=== PATIENT | male | born 1955 | race Caucasian/White ===

== ENCOUNTER → 2024-06-07 09:33 | Outpatient (REF) | payer MEDICARE, BC, SELFPAY ==
[2024-06-07 12:43] LABS: ALT (SGPT) 35 U/L (0-50); AST (SGOT) 36 U/L (17-59); Albumin 4.8 g/dl (3.5-5.0); Alkaline Phosphatase 57 U/L (38-126); Blood Urea Nitrogen 14 mg/dl (9-20); Calcium 9.2 mg/dl (8.4-10.2); Carbon Dioxide 22 mmol/L (22-30); Chloride 98 mmol/L (98-107); Glucose 89 mg/dl (70-99); HDL Cholesterol 86 mg/dl; LDL Cholesterol, Calculated 84 mg/dl; Potassium 4.6 mmol/L (3.5-5.1); Sodium 133 mmol/L (135-145); Total Bilirubin 0.7 mg/dl (0.2-1.3); Total Cholesterol 187 mg/dl (50-199); Total Protein 7.3 g/dl (6.3-8.2); Triglyceride 86 mg/dl (10-149); Very Low Density Lipoprotein 17 mg/dl (0-30); eGFR > 60.00
[2024-06-07 13:14] LABS: PSA, Total - Diagnostic < 0.06 ng/ml (0.0-4.0)
== END ==
LOC: HWLAB 09:33
PROVIDERS: ATTENDING PHYSICIAN Urology; FAMILY PHYSICIAN Family Medicine; REFERRING PHYSICIAN Physician Assistant Medical
DX: Z85.46 Personal history of malignant neoplasm of prostate (principal); E78.5 Hyperlipidemia, unspecified; I48.0 Paroxysmal atrial fibrillation
CPT/HCPCS: 36415; 80053; 80061; 84153; 84443

== ENCOUNTER → 2024-08-01 09:22 | Outpatient (REF) | payer MEDICARE, BC, SELFPAY ==
[2024-08-01 13:00] LABS: % Basophils 0.7 % (0-2); % Eosinophils 1.6 % (0-6); % Immature Granulocytes 0.6 % (0-0.5); % Monocytes 7.7 % (1.7-9.3); % Neutrophils 77.4 % (42.2-75.2); Absolute Basophils 0.1 10^3/uL (0-0.2); Absolute Eosinophils 0.1 10^3/uL (0-0.7); Absolute Immature Granulocytes 0.1 10^3/uL (0-0.05); Absolute Monocytes 0.7 10^3/uL (0.1-0.6); Absolute Neutrophils 6.6 10^3/uL (1.4-6.5); Hematocrit 39.9 % (39.0-52.0); Hemoglobin 13.5 g/dL (13.0-18.0); Mean Corp Hgb Conc. 33.8 g/dL (33.0-37.0); Mean Corpuscular Hgb 31.9 pg (27.0-31.0); Mean Corpuscular Volume 94.3 fL (80.0-94.0); Nucleated Red Blood Cells % 0 % (-); Platelet Count 242 10^3/uL (130-400); Red Blood Cell Count 4.23 10^6/uL (4.70-6.10); Red Cell Dist. Width 13.1 % (11.5-14.5); White Blood Cell Count 8.6 10^3/uL (4.8-10.8)
[2024-08-01 13:05] LABS: Blood Urea Nitrogen 16 mg/dl (9-20); Carbon Dioxide 23 mmol/L (22-30); Chloride 100 mmol/L (98-107); Glucose 87 mg/dl (70-99); Potassium 4.7 mmol/L (3.5-5.1); Sodium 133 mmol/L (135-145); eGFR > 60.00
== END ==
LOC: HWLAB 09:22
PROVIDERS: ATTENDING PHYSICIAN Orthopaedic Surgery; FAMILY PHYSICIAN Family Medicine
DX: Z01.818 Encounter for other preprocedural examination (principal)
CPT/HCPCS: 36415; 80048; 85025

== ENCOUNTER → 2024-08-02 09:09 | Outpatient (REF) | payer MEDICARE, BC, SELFPAY | LOC: HWCARD 09:09 | PROVIDERS: ATTENDING PHYSICIAN Orthopaedic Surgery; FAMILY PHYSICIAN Family Medicine | DX: Z01.818 Encounter for other preprocedural examination (principal) | CPT/HCPCS: 93005 ==

== ENCOUNTER 2024-09-03 06:24 | Day surgery (SDC) | payer MEDICARE, BC, SELFPAY ==
[2024-09-03] VITALS (8 sets, daily range): BP systolic 116–147; BP diastolic 80–93; BMI 28.8
[2024-09-03] MEDS: TYLENOL 1000 MG PO (09:24)
[2024-09-03] MEDS: CELEBREX 200 MG PO (09:24)
[2024-09-03] MEDS: NORMOSOL-R/PLASMALYTE-A 1000 IV (09:39)
== END 2024-09-03 14:26 | disposition home or self-care (01) ==
LOC: SDS 06:24
PROVIDERS: ATTENDING PHYSICIAN Orthopaedic Surgery
DX: M19.032 Primary osteoarthritis, left wrist (principal); M67.432 Ganglion, left wrist
CPT/HCPCS: 25215; 25111

== ENCOUNTER 2024-09-05 16:15 | Emergency (ER) | payer MEDICARE, BC, SELFPAY ==
[2024-09-05 16:17] VITALS: BP 135/75
--- NOTE | 2024-09-05 16:43 | ED.GENMED ---
History of Present Illness
General
Chief Complaint: Post Operative Problem(s)
Time Seen by Provider: 09/05/24 16:23
History of Present Illness
History of Present Illness:
69-year-old male presents the emergency department due to left hand and finger swelling as well as paresthesias. He is 2 days status post left wrist proximal row carpectomy due to severe arthritis. He feels as though the splint and Jose Alejandro wrap are
too tight. Denies fever
Past History
Past History
ED Past Medical History: Arrthythmia (Atrial fibrillation), Asthma, Cancer (prostate cancer), HTN, Hypercholesterolemia and Other (Arthritis osteoarthritis, scoliosis, spinal stenosis, prostate cancer)
ED Past Surgical History: Appendectomy, Orthopedic (Shoulder replacement, right hip surgery, bilateral knee surgery,), Urological (Prostate removed) and Other (Hernia repair �2)
Social History
Tobacco: Former smoker
Personal:
Living: with family
Employment: Retired
Family History
Family History: Other (father with coronary artery disease in his 40s.)
Review of Systems
Review of Systems
Allergies reviewed?: Yes
All Other Systems: ROS reviewed and negative except as documented in HPI and ROS
Phy Exam
Physical Exam
Physical Exam:
GEN: Well appearing, NAD, WDWN
HEENT: Oral mucosa moist, no scleral icterus
Cardiac: Regular rate
Lung: No respiratory distress, no tachypnea
MSK: Short arm volar splint on the left wrist. Splint is taken down, there are dorsal and volar incisions that are well-approximated with no discharge, no erythema
Skin: Good color, no pallor or jaundice, no rashes
Neuro: AO x3, moves all extremities freely
Psych: Calm, cooperative
Course
Vital Signs
Initial and Last Documented VS:
Initial Vital Signs
Temp Pulse BP Pulse Ox
97.7 F 70 135/75 95
09/05/24 16:17 09/05/24 16:17 09/05/24 16:17 09/05/24 16:17
Last Documented Vital Signs
Temp Pulse BP Pulse Ox
97.7 F 70 135/75 95
09/05/24 16:17 09/05/24 16:17 09/05/24 16:17 09/05/24 16:17
Procedures
Splinting/Sling Placement
Left wrist:
Procedure completed by: Nolan Deluna PA-C
Pre-splint extermity exam: neurovascular intact
Type of splint: short arm
Splint material: fiberglass
Normal distal neurovascular exam?: Yes
MDM/Problems Addressed
MDM/Problems Addressed:
Splint taken down and replaced, patient reporting improved symptoms, recommend outpatient hand surgery follow-up
*Critical Care Note
Total Time (30-74mins, 75-104mins- exclusive of procedures): Not Applicable
ED Attending Note
-
Portions of this chart may have been created with voice recognition software.� Occasional wrong word or��sound alike� substitutions may have occurred due to the inherent limitations of voice recognition software.
Discharge Plan
Departure
Patient Disposition: Home (Routine Discharge)
Date of Disposition: 09/05/24
Time of Disposition: 16:45
Patient with high blood pressure during this ER visit?: No
Discharge Problem:
Swelling of left hand
Prescriptions:
No Action
simvastatin 20 MG tablet
20 mg PO DAILY
metoprolol succinate 25 MG tablet extended release 24 hr
25 mg PO DAILY Qty: 1 0RF
Rx Instructions:
note decreased dose
aspirin 81 MG tablet,delayed release (DR/EC)
81 mg PO DAILY
Activity Restrictions/Additional Instructions:
The majority of the swelling is postoperative and anticipated. Please keep the arm elevated to reduce swelling
Interventions
Interventions:
*Risk Screen - Suicide Last Done: 09/05/24 16:17
*General Assessment Last Done: 09/05/24 16:26
*Neglect/Abuse Screening Last Done: 09/05/24 16:26
*ED- Fall Risk Assessment Last Done: 09/05/24 16:26
*Nursing Disposition Last Done: 09/05/24 17:03
ED-Skin Assessment Last Done: 09/05/24 16:48
Discharge Date and Time
Discharge Date/Time: 09/05/24 17:03
Print Language: SLOVENIAN
== END 2024-09-05 17:03 | disposition home or self-care (01) ==
LOC: EMR 16:15
PROVIDERS: EMERGENCY PHYSICIAN Emergency Medicine; FAMILY PHYSICIAN Family Medicine
DX: R22.42 Localized swelling, mass and lump, left lower limb (principal); R20.2 Paresthesia of skin; I48.91 Unspecified atrial fibrillation; J45.909 Unspecified asthma, uncomplicated; I10 Essential (primary) hypertension; E78.00 Pure hypercholesterolemia, unspecified; M19.90 Unspecified osteoarthritis, unspecified site; M41.9 Scoliosis, unspecified; M48.00 Spinal stenosis, site unspecified; Z82.49 Family history of ischemic heart disease and other diseases of the circulatory system; Z85.46 Personal history of malignant neoplasm of prostate; Z87.891 Personal history of nicotine dependence; Z90.49 Acquired absence of other specified parts of digestive tract; Z90.79 Acquired absence of other genital organ(s)
CPT/HCPCS: 99282; 29125

== ENCOUNTER → 2024-09-20 15:34 | Outpatient (REF) | payer MEDICARE, BC, SELFPAY | LOC: RAD 15:34 | PROVIDERS: ATTENDING PHYSICIAN Surgery Vascular Surgery; FAMILY PHYSICIAN Family Medicine | DX: I72.1 Aneurysm of artery of upper extremity (principal) | CPT/HCPCS: 73206; Q9967 ==

== ENCOUNTER → 2024-09-25 06:29 | Outpatient (REF) | payer MEDICARE, BC, SELFPAY | LOC: RAD 06:29 | PROVIDERS: ATTENDING PHYSICIAN Surgery Vascular Surgery; FAMILY PHYSICIAN Family Medicine | DX: I72.1 Aneurysm of artery of upper extremity (principal); Z01.818 Encounter for other preprocedural examination; I87.2 Venous insufficiency (chronic) (peripheral) | CPT/HCPCS: 93923; 93931; 93970 ==

== ENCOUNTER → 2024-11-26 07:53 | Outpatient (REF) | payer MEDICARE, BC, SELFPAY | LOC: HWRAD 07:53 | PROVIDERS: ATTENDING PHYSICIAN Internal Medicine Cardiovascular Disease; FAMILY PHYSICIAN Family Medicine | DX: I65.23 Occlusion and stenosis of bilateral carotid arteries (principal) | CPT/HCPCS: 93880 ==

== ENCOUNTER → 2024-12-02 09:42 | Outpatient (REF) | payer MEDICARE, BC, SELFPAY ==
[2024-12-02 14:08] LABS: Blood Urea Nitrogen 17 mg/dl (9-20); Calcium 9.6 mg/dl (8.4-10.2); Carbon Dioxide 19 mmol/L (22-30); Chloride 105 mmol/L (98-107); Glucose 102 mg/dl (70-99); Potassium 5.3 mmol/L (3.5-5.1); Sodium 135 mmol/L (135-145); eGFR > 60.00
== END ==
LOC: HWLAB 09:42
PROVIDERS: ATTENDING PHYSICIAN Surgery Vascular Surgery; FAMILY PHYSICIAN Family Medicine
DX: I65.23 Occlusion and stenosis of bilateral carotid arteries (principal)
CPT/HCPCS: 36415; 80048

== ENCOUNTER → 2024-12-03 07:14 | Outpatient (REF) | payer MEDICARE, BC, SELFPAY | LOC: RAD 07:14 | PROVIDERS: ATTENDING PHYSICIAN Surgery Vascular Surgery; FAMILY PHYSICIAN Family Medicine | DX: I65.23 Occlusion and stenosis of bilateral carotid arteries (principal) | CPT/HCPCS: 70496; 70498; Q9967 ==

== ENCOUNTER 2025-02-07 06:00 | Inpatient (IN) | payer MEDICARE, BC, SELFPAY ==
[2025-01-22 09:14] VITALS: BMI 28.3
[2025-01-22 09:46] LABS: Hematocrit 39.7 % (39.0-52.0); Hemoglobin 13.8 g/dL (13.0-18.0); Mean Corp Hgb Conc. 34.8 g/dL (33.0-37.0); Mean Corpuscular Volume 94.5 fL (80.0-94.0); Nucleated Red Blood Cells % 0 % (-); Platelet Count 242 10^3/uL (130-400); Red Cell Dist. Width 13.1 % (11.5-14.5)
[2025-01-22 10:02] LABS: INR 0.98; PT 13.4 Sec (11.4-14.6)
[2025-01-22 10:03] LABS: APTT 31.6 Sec (23.4-35.0)
[2025-01-22 10:33] LABS: Blood Urea Nitrogen 15 mg/dl (9-20); Calcium 9.6 mg/dl (8.4-10.2); Carbon Dioxide 19 mmol/L (22-30); Chloride 102 mmol/L (98-107); Estimated Creatinine Clearance 79 ml/min; Glucose 102 mg/dl (70-99); Potassium 5.3 mmol/L (3.5-5.1); Sodium 132 mmol/L (135-145); eGFR > 60.00
[2025-02-07] VITALS (16 sets, daily range): BP systolic 92–128; BP diastolic 55–88; BMI 28.5; BMI 27.9
[2025-02-07 06:59] LABS: Hematocrit 38.0 % (39.0-52.0); Hemoglobin 13.5 g/dL (13.0-18.0); Mean Corp Hgb Conc. 35.5 g/dL (33.0-37.0); Mean Corpuscular Volume 91.8 fL (80.0-94.0); Platelet Count 259 10^3/uL (130-400); Red Cell Dist. Width 13.2 % (11.5-14.5)
[2025-02-07] MEDS: BACTROBAN NASAL 1 GRAM NASAL (07:05)
[2025-02-07] MEDS: PERIDEX 0.12% ORAL RINSE 15 ML PO (07:05)
[2025-02-07] MEDS: NSS 500 IV (07:05)
[2025-02-07 07:07] LABS: Blood Urea Nitrogen 15 mg/dl (9-20); Calcium 9.6 mg/dl (8.4-10.2); Carbon Dioxide 22 mmol/L (22-30); Chloride 103 mmol/L (98-107); Estimated Creatinine Clearance 79 ml/min; Glucose 102 mg/dl (70-99); Potassium 4.9 mmol/L (3.5-5.1); Sodium 134 mmol/L (135-145); eGFR > 60.00
[2025-02-07 07:33] LABS: INR 0.95; PT 13.0 Sec (11.4-14.6)
[2025-02-07 07:34] LABS: APTT 30.6 Sec (23.4-35.0)
--- NOTE | 2025-02-07 08:18 | W.SUR.PREOP ---
Pre-Operative Surgical Note
-
I have examined this patient prior to the performance of the scheduled procedure.
The patient's condition is unchanged from the time of the current History and
Physical and the patient is able to undergo the scheduled procedure.
[2025-02-07 09:14] LABS: ACT-LR - POC 334 Seconds (116-155)
[2025-02-07 09:58] LABS: ACT-LR - POC 242 Seconds (116-155)
--- NOTE | 2025-02-07 10:34 | OR.RPT ---
Operative Report
Operative Report
Date of Operation: 02/07/2025
Pre Op Diagnosis: High-grade left carotid artery stenosis, asymptomatic
Post Op Diagnosis: High-grade left carotid artery stenosis, asymptomatic
Procedure: LEFT carotid endarterectomy with patch angioplasty using bovine pericardium
Surgeon: Burton Tapia III, MD
Circuit Board Inspector: Ghulam Damon MD PhD PGY-7
Anesthesia: General
Complications: None
History and Indications for Procedure: 69-year-old male with heavily calcified high-grade stenosis of the left carotid artery
Procedure in Detail: Mike Hu was correctly identified and placed supine on the operating table. After adequate induction of anesthesia the left neck was positioned, prepped and draped in the usual sterile fashion. Preoperative antibiotics were
administered. A timeout procedure was performed with the nursing and anesthesia staff confirming the patients identity as well as the nature and laterality of the procedure.
The carotid bifurcation was marked with ultrasound at the beginning of the case. The incision was planned accordingly. An incision was made along the anterior border of the left sternocleidomastoid muscle. Electrocautery was used to divide the
subcutaneous tissue and platysma. The carotid sheath was entered with sharp dissection. The internal jugular vein was retracted laterally. The vagus nerve was identified and protected throughout the case. The common carotid artery was identified at
the base of this incision and carefully encircled with a vessel loop. The patient was systemically heparinized. The dissection was continued distally towards the carotid bifurcation. The facial vein was skeletonized, ligated and divided between ties
and clips. The proximal external carotid artery was encircled with a vessel loop. The distal internal carotid artery was encircled with a vessel loop at a soft spot on the artery beyond the plaque. The hypoglossal nerve was identified and protected.
The internal vessel loop was secured followed by the common and external. An arteriotomy was made on the distal common carotid artery with an 11-blade. This was extended proximally and distally with Pittman scissors. The arteriotomy was extended
distally through the plaque to an area of normal appearing internal carotid artery. The distal vessel loop was replaced with a short tip hockey-stick type vascular clamp. An endarterectomy was performed with a [place] elevator in the standard
fashion. The proximal extent of the plaque was transected with scissors. The distal end of the plaque in the internal carotid artery was feathered. No distal intimal flap was identified. The plaque extending into the external carotid artery was
everted. Once the plaque was fully removed the endarterectomy plane was irrigated with heparinized saline and any loose fronds of tissue were removed. A pre-cut piece of bovine pericardium was sewn in place using a running 6-0 Prolene suture. Prior
to the completion of the patch the common carotid was allowed to forward bleed and the external was allowed to back bleed. The area under the patch was irrigated with heparinized saline to remove any potential thrombus or debris. The anastomosis was
completed.
The external vessel loop was released first, followed by the common and then the internal. There was an excellent pulse in the distal internal carotid artery. An excellent quality Doppler signal in the distal internal carotid artery was also
confirmed. The patch suture line was closely inspected for hemostasis and was achieved. Protamine was administered. Hemostasis was achieved in the wound bed. The wound was irrigated with saline solution.
The wound was then closed in layers. Sterile skin glue was applied. The patient awoke from anesthesia with no immediate neuro deficits and was taken to the PACU in stable condition.
Attestation: I was present and responsible for the entire procedure
Signed:
Burton Tapia III, MD
Vascular Surgery
[facility]
[2025-02-07] MEDS: NEO-SYNEPHRINE 250 IV (10:50)
--- NOTE | 2025-02-07 10:55 | W.SUR.POST ---
Surgical Immediate Post Op
Note
Pre Op Diagnosis: LEFT Carotid Stenosis
Post Op Diagnosis: LEFT Carotid Stenosis
Procedure Performed: LEFT Carotid Endarterectomy
Primary Surgeon: Burton Tapia MD
Secondary Surgeons: Ghulam Damon MD PhD
Anesthesia: Per Anesthesia
Estimated Blood Loss: 20 cc
Fluids: Per Anesthesia
Drains/Shunts: None
Specimens/Cultures: None
Doppler/Duplex/Angio (Y/N): Doppler normal
Complications: None
Operative Findings: Uncomplicated LEFT carotid endarterectomy. Neuro intact post-op.
[2025-02-07] MEDS: NSS 1000 IV ×2 (11:52→23:23)
[2025-02-07] MEDS: ROXICODONE 5 MG PO (12:01)
--- NOTE | 2025-02-07 12:26 | CON.INTV ---
Consultation
Consultation Request
Date/Time Consultation Requested: 02/07
Date/Time Consultation Performed: 02/07
Reason for Consultation: Critical care
Medical History
-
History of Present Illness:
History obtained from the patient, at bedside and reviewing medical records. Pleasant 69-year-old male with history of atrial fibrillation with ablation in the past, hypertension, hyperlipidemia, prostate cancer, recently diagnosed squamous
cell skin cancer who is now status post left carotid endarterectomy. He was found to have a heavily calcified high-grade stenosis. Patient presently is without complaints. He has some mild neck discomfort but denies any shortness of breath, chest
pain, nausea. We are asked to help from a critical care standpoint
.
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
hip and knee surgeries in the past with history of avascular necrosis of the right hip
Past Medical History
Past Medical History: None (See above)
Past Surgical History: None (See above)
Social History
Tobacco: Former Smoker (Quit in the , 20+ pack year)
Alcohol: Daily (Sixpack of beer a day)
Drug: None
Personal:
Living: With Family
Employment: Retired ([employer])
Family History
Family History: Other (Siblings, children are healthy. Father and mother alive. Father with cardiac disease)
Allergies / Home Medications
Allergies
Allergy/AdvReac Type Severity Reaction Status Date / Time
morphine Allergy NAUSEA,LOW Verified 02/07/25 06:25
BP,LOC
Home Medications
�Medication �Instructions �Recorded �Confirmed �Last Taken �Type
metoprolol succinate 25 mg 25 mg PO DAILY #1 tab 05/20/16 02/07/25 02/07/25 05:00 Rx
tablet,extended release 24 hr
aspirin 81 mg tablet,delayed 81 mg PO DAILY Blood Clot 10/09/17 02/07/2502/03/25 08:00 History
release Prevention/Tx
atorvastatin 40 mg tablet 40 mg PO DAILY High Cholesterol 01/20/25 02/07/25 02/07/25 05:00 History
ibuprofen 200 mg tablet 400 mg PO DAILY Pain 01/20/25 02/07/25 01/17/25 07:00 History
Review of Systems
-
All other systems: Negative unless noted
Vitals / Labs / Diagnostic Testing
Vital Signs
Temp Pulse Resp BP Pulse Ox
97.4 F 64 12 112/65 97
02/07/25 11:26 02/07/25 12:15 02/07/25 12:15 02/07/25 12:15 02/07/25 12:15
Lab Data
02/07/25 06:43
02/07/25 06:43
Laboratory Results
02/07/25
06:43
PT 13.0
INR 0.95
APTT 30.6
Diagnostic Testing:
Physical Exam
-
HEENT: Normocephalic, Anicteric and Other (Left carotid incision intact)
Cardiovascular: S1/S2, Regular Rhythm, Murmur (n), Rub (n), Peripheral Edema (n) and Other (Upper extremity A-line)
Respiratory: Wheeze (n), Rales (n), Rhonchi (n) and Non-Labored Respirations
GI: Soft, Non Distended and Non Tender
Neurology: Awake, Alert and No Motor Deficits
Skin: Other (Scattered tattoos)
General: Comfortable
Assessment
-
69-year-old male with history of high-grade left carotid stenosis status post left carotid endarterectomy 02/07 without complications. Presently on low-dose norepinephrine
S/p LCEA, 02/07/25
High-grade carotid stenosis
Hypotension postoperatively
On low-dose norepinephrine
History of atrial fibrillation, ablation in the past
Conditions present prior to admission
Hypertension/hyperlipidemia
History of prostate cancer, prostatectomy 2006
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
[id number] history of smoking quit
Daily alcohol use, sixpack of beer
Plan/recommendations
at this time, patient is critically ill but remains stable
He is without complaints.
Left incision intact
Moving all extremities, conversing
On low-dose norepinephrine being weaned
Moving forward
Continue with management per vascular surgery
Follow hemodynamics, pressors as needed, Cardene if needed
Continue with IV fluids
Follow neurochecks
DVT prophylaxis: Subcutaneous heparin
Reviewed with patient and family at bedside
We will follow
TCCT 31 min
--- NOTE | 2025-02-07 12:30 | PTCARENOTE ---
Rec'd pt at 1140 via Bed from PACU. Neuro check completed with PACU staff. Rec'd sl drowsy but then awake alert and oriented. Smile is even. Tongue is midline. INIGUEZ- no c/o numbness or tingling.. Handgrasps are equal. Speech is clear. NICANOR at 3mm.
Does admit to a headache as well as his L neck aching- 7/10 for both. Medicated with Roxicodone 5 mg po for pain at 1200. Skin is pale pink wm and dry. L neck incision with ice pack present-will do intermittent q20 min. Incision is approximated with
surgical adhesive present. Sl ecchymosis but no drainage. Upper end is soft but sl swollen- no change from when in PACU. Pt has a lesion on the top-toward the back of his head that is raised 3cm x 4 cm and reddish/ecchymotic in color. Lesion is not
widely open but does have some intermittent scant bloody oozing. Per pt and it is a sqaumous cell lesion that is due to be removed once healed from the CEA. Respirs are unlabored on 2l nc with sats of 96%. BS are clear. Monitor SR. + pulses as
documented. No edema but pt does have some sl swelling in his L hand which he says is from previous surgery. Denies chest pain. L radial a line intact-site wnl. Good CMS checks. Zeroed and recalibrated. Congruent with cuff BP. Nailbeds are pink with
refill <2 sec. Rec'd pt on IV Hu at 20 mcg-will titrate as needed keeping syst BP 100-165 per MD orders. Abd is soft with +BS. Denies nausea. Denies need to void. IV NSS at 80 ml/hr and IV Hu infusing via L AC IV Site. Site wnl. Capped int intact
R arm. Pt repositioned. ECG and CXRay completed. Plan of care reviewed with pt and . Call fernandez in reach.
[2025-02-07 12:39] LABS: Magnesium 2.3 mg/dl (1.6-2.3)
--- NOTE | 2025-02-07 13:00 | PTCARENOTE ---
BP's have been 112-130 syst. IV Hu decreased to 10 mcg and will titrate to off if tolerated. Remains resting. Said earlier Roxicodone helped a little but still has a headache and neck soreness. Does admit that the lesion on the top/back of his head
can hurt him as well. Neuro assessment is unchanged. VS as documented. Denies need to void currently.
--- NOTE | 2025-02-07 14:00 | PTCARENOTE ---
Vascular surgery in to see pt and updated. Pt still c/o a headache- about at 6-7, felt is was a little better after the Roxicodone earlier but still there. No c/o dizziness or blurred vision. NICANOR at 3 mm. INIGUEZ. No other changes in assessment. VS as
documented. IV Hu gtt dc'd as Bp mostly has been in the 115-130 range syst. Awaiting clear liquid lunch.
[2025-02-07] MEDS: OFIRMEV 100 IV ×2 (14:45→21:49)
--- NOTE | 2025-02-07 14:51 | PTCARENOTE ---
Tried on RA but if pt starts to doze his sats dip to 88%. O2 reapplied at 2L with sats up to 95%. Good toleration of clear liquids for lunch. No difficulty noted with swallowing. L neck incision is unchanged. Medicated with Ofermiv 1000 mg IV for
c/o 6/10 L side to frontal headache. States it is sl better than earlier. Call fernandez in reach.
--- NOTE | 2025-02-07 15:28 | PTCARENOTE ---
Pt starting to doze- states headache is easing and is about a 4. No other changes.
[2025-02-07] MEDS: HEPARIN 5000 UNITS SC (16:28)
--- NOTE | 2025-02-07 16:30 | PTCARENOTE ---
Remains resting- dozing at intervals. Still with dull headache but states it is better. States neck pain is tolerable. L neck incision is unchanged. Had ice on at 20 min intervals for 2 hrs. Bruising around incision but no additional swelling and no
drainage. NICANOR at 3mm. Speech is clear. Smile is even. MSAS is a 0. Respirs are unlabored. Remains on 2L nc with sats of 96-97%. Monitor SR -Sbrady -rates 50's-60's. Vs as documented. IV Hu remains off. A Line remains overall congruent with cuff
BP. Tolerating liquid without c/o nausea. HNV yet- Will bladder scan if doesn't void by 1800. IV NSS infusing via L ac at 80 ml/hr. Repositioned. Call fernandez in reach. Pts at the bedside.
--- NOTE | 2025-02-07 18:00 | PTCARENOTE ---
Will try pt again on RA as the O2 keeps coming out of his nose- sats are 94% on RA. Lesion on pts head does ooze scant amts of bloody drainage (pts says ever since he had a biopsy of it). 4x4 gauze placed over to cushion and a spandage cap. Air
pillow placed under pts head earlier.
--- NOTE | 2025-02-07 18:00 | PTCARENOTE ---
Pt had not voided since surgery and denied feeling the urge to void. Bladder scanned at 1740 for 958 mls. Pt then tried to urinate and voided 1050 mls of yellow urine in the urinal. Stated he didn't feel like he had to urinate but was more
comfortable now that he did. Admits to a 4/10 headache somewhat behind his eyes although denies blurred vision and DAMION at 3 mm- states the lesion on the top of his head makes his head feel sore as well. Currently eating dinner. No difficulty noted
with swallowing and no c/o nausea. Callbell in reach.
--- NOTE | 2025-02-07 20:00 | PTCARENOTE ---
Received pt resting in bed, AAOx3, reports 3/10 headache, which is ongoing for him. Reports it feels controlled and does not require pain medicine at this time. Will reassess through night. INIGUEZ. Neuro check WNL- Q1h checks ongoing. SR/SB on tele, HR
50-60s. BP 110s/50s via L radial A line -transduced and zeroed. Afebrile. On RA. Lungs CTA. Spo2 95%. + bowel sounds. Tolerating low cholesterol diet. NSS @ 80ml/hr per AUG. L neck surgical site approximated with surgi glue. Mild ecchymosis and mild
edema at top of incision - unchanged per dayshift RN at handoff.
[2025-02-08] VITALS: BP 127/68
--- NOTE | 2025-02-08 00:02 | PTCARENOTE ---
Ofirmev given for 4/10 pain with good effect. Placed on 2L NC while sleeping due to sats dipping to 85%. Now 97%. Neuro checks unchanged.
[2025-02-08] MEDS: HEPARIN 5000 UNITS SC ×2 (00:44→08:21)
[2025-02-08 04:00] VITALS: BP 129/73
[2025-02-08 04:23] LABS: Hematocrit 34.3 % (39.0-52.0); Hemoglobin 11.9 g/dL (13.0-18.0); Mean Corp Hgb Conc. 34.7 g/dL (33.0-37.0); Mean Corpuscular Volume 94.5 fL (80.0-94.0); Platelet Count 238 10^3/uL (130-400); Red Cell Dist. Width 13.2 % (11.5-14.5)
[2025-02-08 04:33] LABS: INR 1.06; PT 14.1 Sec (11.4-14.6)
[2025-02-08 04:34] LABS: APTT 28.7 Sec (23.4-35.0)
[2025-02-08 04:47] LABS: Blood Urea Nitrogen 16 mg/dl (9-20); Calcium 8.9 mg/dl (8.4-10.2); Carbon Dioxide 21 mmol/L (22-30); Chloride 107 mmol/L (98-107); Estimated Creatinine Clearance 87 ml/min; Glucose 132 mg/dl (70-99); Potassium 4.4 mmol/L (3.5-5.1); Sodium 134 mmol/L (135-145); eGFR > 60.00
[2025-02-08] MEDS: OFIRMEV 100 IV (05:14)
--- NOTE | 2025-02-08 07:16 | W.PN.INTV ---
Today's Communication / Plan
Recommendations
Doing well from vascular standpoint
Neuroexam nonfocal
Left carotid incision intact. Headaches appear to be chronic and attributable to scalp squamous cell lesion
Reviewed nocturnal hypoxia, reviewed risk for sleep apnea
Sleep clinic follow-up information left in chart, at discretion of primary inpatient
Possible disposition later today noted
Assessment
-
69-year-old male with history of high-grade left carotid stenosis status post left carotid endarterectomy 02/07 without complications. Presently on low-dose norepinephrine
S/p LCEA, 02/07/25
High-grade carotid stenosis
Hypotension postoperatively
On low-dose norepinephrine
History of atrial fibrillation, ablation in the past
Conditions present prior to admission
Hypertension/hyperlipidemia
History of prostate cancer, prostatectomy 2006
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
03-[id number]-[id number] history of smoking quit
Daily alcohol use, sixpack of beer
Plan/recommendations
Patient at this time appears to be comfortable
Without complaints
Hemodynamically stable
Neuroexam unremarkable
Left incision intact
Weaned off pressors
Moving forward
Continue with management per vascular surgery
Suspect patient moving close towards discharge
Patient having some headaches but this is chronic according the patient
A-line, Tapia catheter to be discontinued, await vascular input
Nocturnal hypoxia noted. Reviewed possibility of sleep disordered breathing with patient. Our information will be left in chart and patient will follow-up at his discretion
DVT prophylaxis: Subcutaneous heparin
Disposition efforts
Subjective Dataa
Subjective Data
Date of Service:
Date of Service: February 08, 2025
Subjective:
Patient is without complaints. Denies shortness of breath, chest pain, nausea, abdominal pain, leg pain. Neuroexam unremarkable, Patient states he has some headaches but this is chronic and attributes to his scalp squamous cell
Objective Data
Data Reviewed
Vital Signs / I&O / Oxygen:
Vital Signs
Temp Pulse Resp BP Pulse Ox
97.6 F 58 14 129/73 97
02/08/25 03:03 02/08/25 07:00 02/08/25 07:00 02/08/25 04:00 02/08/25 07:00
Intake and Output
02/07/25 02/08/25 02/09/25
06:59 06:59 06:59
Intake Total 2557 / 2557
Output Total 1800 / 1800
Balance 757 / 757
SaO2 97
Nasal Cannula flow liters per 2
minute
Physical Exam
General: Comfortable, Other (Left carotid incision intact) and Other (Upper extremity)
HEENT: Normocephalic and Anicteric
Cardiovascular: S1-S2, Regular Rhythm, Murmur (n) and Rub (n)
Respiratory: Wheeze (n), Crackles (n), Rhonchi (n) and Non-Labored Respirations
GI: Soft, Non Distended and Non Tender
Neurology: Awake, Alert and No Motor Deficits (Cranial nerves intact)
Skin: Good Color, Cyanosis (n) and Jaundice (n)
Labs/Micro/Reports
Lab Data
02/08/25 03:51
02/08/25 03:51
Laboratory Results
02/07/25 02/08/25
06:43 03:51
PT 13.0 14.1
INR 0.95 1.06
APTT 30.6 28.7
[2025-02-08 08:00] VITALS: BP 121/68
[2025-02-08] MEDS: ASPIR LOW (ENTERIC COATED) 81 MG PO (08:21)
[2025-02-08] MEDS: LIPITOR 40 MG PO (08:21)
[2025-02-08] MEDS: TOPROL XL 25 MG PO (08:21)
--- NOTE | 2025-02-08 09:58 | CM ---
CM reviewed chart and met with pt and bedside in ICU. Lives with in 3 level home, no HARSHIL. Has first level half BA, total of 10 steps to third floor BR, full BA. Independent in ADLs, personal care and ambulation at baseline, no assistive
devices, still driving.
Hx VN from [place] after hip replacement in 2011
No hx SNF
PCP: Jc Adame
Pharmacy: [facility]
Anticipate discharge home, CM will continue to follow for any discharge planning needs.
[2025-02-08 10:12] VITALS: BP 135/75
--- NOTE | 2025-02-08 10:13 | W.PN.VS ---
Today's Communication / Plan
-
DC home
Assessment/Plan
-
69M POD 1 L CEA
-DC today
Subjective Data
-
Date of Service: February 08, 2025
Seen and examined at bedside. NAEO. Resting comfortably
Objective Data
-
Vital Signs
Temp Pulse Resp BP Pulse Ox
97.7 F 58 14 129/73 97
02/08/25 08:00 02/08/25 07:00 02/08/25 07:00 02/08/25 04:00 02/08/25 07:00
Intake and Output
02/07/25 02/08/25 02/09/25
06:59 06:59 06:59
Intake Total 2557 / 2557
Output Total 1800 / 1800
Balance 757 / 757
Intake:
Oral fluids 850 / 850
IV fluids (Total) 1607 / 1607
Hu 12 / 12
normal saline 1595 / 1595
IV piggybacks 100 / 100
Output:
Urine, Voided 1800 / 1800
Lab Results
02/08/25 03:51
02/08/25 03:51
Calcium 8.9 mg/dl (8.4-10.2) 02/08/25 03:51
Magnesium 2.3 mg/dl (1.6-2.3) 02/07/25 06:43
Physical Exam
-
Gen: NAD, AOx3
Neck: incision C/D/I; no hematoma
Neuro: non focal exam
--- NOTE | 2025-02-08 10:16 | W.DS.TRANS ---
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
-
Discharge Instructions:
Sleep Apnea Risk Intermediate
Discharge Diagnosis/Procedures carotid endarterectomy
Diet As tolerated
Activity No strenuous activity
Driving Restrictions Not until seen by your Dr
Bathing Restrictions OK to Shower
Instructions:
Stand-Alone Forms: Vascular Surg Discharge Instr
Changes to Home Medications: No
Discharge Medications:
DC Medications w/original date entered in [employer]
metoprolol succinate 25 mg tablet,extended release 24 hr 25 mg PO DAILY #1 tab 05/20/16
aspirin 81 mg tablet,delayed release 81 mg PO DAILY Blood Clot Prevention/Tx 10/09/17
atorvastatin 40 mg tablet 40 mg PO DAILY High Cholesterol 01/20/25
ibuprofen 200 mg tablet 400 mg PO DAILY Pain 01/20/25
Home Medication Changes
Pending Results: No
--- NOTE | 2025-02-08 10:36 | PTCARENOTE ---
Rec'd pt at 0700. Pt AAOx3, follows commands, INIGUEZ. Monitor SBR/SR. Lungs CTA. +BS, abd soft/nt. 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 Left radial a-line dc'd. Pt ambulating in room. Discharge instructions received and reviewed with
pt and . Pt discharged home at 1030.
--- NOTE | 2025-02-11 16:07 | W.DCSUMMARY ---
Discharge Summary
Discharge Data
Date of Admission: 02/07/25
Date of Discharge: 02/08/25
-
Pending Results: No
Hospital Course
Attending: Burton Tapia III, MD
Consultants: Pulmonary medicine
Allergies: Morphine
Procedure with date: LEFT carotid endarterectomy with patch angioplasty using bovine pericardium on 02/07/[address] Burton Tapia III
History of present illness: The patient is an 69-year-old male with multiple medical conditions including: carotid stenosis, avascular necrosis of right hip, syncope, hypertension, dyslipidemia, arthritis, aortic aneurysm, prostate cancer, gout,
asthma, and paroxysmal atrial fibrillation. Patient presented on 02/07/2025 for scheduled procedure with Dr. Tapia. Patient presented at baseline health with no reports of recent illness or trauma.
Hospital Course: Briefly, the patient underwent scheduled left carotid endarterectomy with patch angioplasty using bovine pericardium without complications, and recovered in PACU. Following recovery phase one and two patient was transferred to
intensive care unit per protocol for continued hemodynamic monitoring. Stacker Straightener consulted to aid in medical management from a critical care perspective. POD #1 (02/08/2025) Patient neurologically intact, and tolerating PO diet. Surgical left neck
clean, dry, and intact with suture line well approximated and soft. No evidence of hematoma. Arterial line and IV fluids discontinued. Patient able to ambulate without difficulty or incident. Patient stable for discharge to home.
Prescriptions and follow up appointment are included in the DC summary boiler washer note. All instructions were given to the patient in both written and verbal form and the patient expressed understanding.
Discharge Plan
-
Patient Disposition: Home (Routine Discharge)
Discharge Diagnosis/Procedures: carotid endarterectomy
Condition: Good
Diet: As tolerated
Activity: No strenuous activity
Driving Restrictions: Not until seen by your Dr
Bathing Restrictions: OK to Shower
Stand Alone Forms: Vascular Surg Discharge Instr
Referrals:
Parish Dunn MD [Active, Pulmonary Medicine]
Referral Note: low oxygen with sleep, suggestive of possible sleep apnea
consider home sleep test and follow up as needed in sleep clinic
2 mo
Jc Adame DO [Primary Care Provider, [facility]]
Isabella Noble CRNP [Specified Professional Personl, Vascular Surgery] - 02/20/25 11:00 am
Referral Note: Vascular office follow up
Prescriptions:
Continued
metoprolol succinate 25 MG tablet extended release 24 hr
25 mg PO DAILY Qty: 1 0RF
aspirin 81 MG tablet,delayed release (DR/EC)
81 mg PO DAILY
atorvastatin 40 mg Tablet
40 mg PO DAILY
ibuprofen 200 mg Tablet
400 mg PO DAILY
Discharge Orders:
Discharge Patient (As Directed); Ordered 02/08/25
Ordered By: Arturo Price
Discharge Date and Time
Discharge Date/Time: 02/08/25 10:40
Print Language: GEORGIAN
== END 2025-02-08 10:40 | disposition home or self-care (01) | DRG 39 ==
LOC: ICU 06:00
PROVIDERS: Nurse Practitioner; ADMITTING PHYSICIAN Surgery Vascular Surgery; CONSULT PHYSICIAN Internal Medicine Critical Care Medicine; PRIMARYCARE PHYSICIAN Family Medicine
PROC: 03UJ0KZ Supplement Left Common Carotid Artery with Nonautologous Tissue Substitute, Open Approach (ICD-10-PCS; 2025-02-07)
PROC: 03CJ0ZZ Extirpation of Matter from Left Common Carotid Artery, Open Approach (ICD-10-PCS; 2025-02-07)
DX: I65.22 Occlusion and stenosis of left carotid artery (principal); I48.0 Paroxysmal atrial fibrillation; E78.5 Hyperlipidemia, unspecified; I77.810 Thoracic aortic ectasia; I95.81 Postprocedural hypotension; R51.9 Headache, unspecified; I10 Essential (primary) hypertension; C44.40 Unspecified malignant neoplasm of skin of scalp and neck; Z87.891 Personal history of nicotine dependence; J45.909 Unspecified asthma, uncomplicated
CPT/HCPCS: 35301; 36415; 71045; 71046; 80048; 83735; 85025; 85027; 85610; 85730; 86850; 86900; 86901; 93005; 95938; 95941; 95955

== ENCOUNTER → 2025-02-14 10:46 | Outpatient (REF) | payer MEDICARE, BC, SELFPAY | LOC: RAD 10:46 | PROVIDERS: ATTENDING PHYSICIAN Registered Nurse; FAMILY PHYSICIAN Family Medicine; OTHER PHYSICIAN Surgery Vascular Surgery | DX: I65.23 Occlusion and stenosis of bilateral carotid arteries (principal); Z98.890 Other specified postprocedural states | CPT/HCPCS: 93880 ==

== ENCOUNTER → 2025-04-03 09:26 | Outpatient (REF) | payer MEDICARE, BC, SELFPAY ==
[2025-04-03 11:52] LABS: ALT (SGPT) 38 U/L (0-50); AST (SGOT) 33 U/L (17-59); Albumin 4.7 g/dl (3.5-5.0); Alkaline Phosphatase 54 U/L (38-126); Blood Urea Nitrogen 18 mg/dl (9-20); Calcium 9.4 mg/dl (8.4-10.2); Carbon Dioxide 24 mmol/L (22-30); Chloride 103 mmol/L (98-107); Glucose 90 mg/dl (70-99); HDL Cholesterol 96 mg/dl; LDL Cholesterol, Calculated 47 mg/dl; Potassium 4.8 mmol/L (3.5-5.1); Sodium 134 mmol/L (135-145); Total Protein 7.2 g/dl (6.3-8.2); Very Low Density Lipoprotein 16 mg/dl (0-30); eGFR > 60.00
== END ==
LOC: HWLAB 09:26
PROVIDERS: ATTENDING PHYSICIAN Internal Medicine Cardiovascular Disease; FAMILY PHYSICIAN Family Medicine
DX: E78.5 Hyperlipidemia, unspecified (principal)
CPT/HCPCS: 36415; 80053; 80061